=== PATIENT | male | born 1990 | race Caucasian/White ===

== ENCOUNTER 2018-09-30 13:53 | Observation (INO) | payer OTHER ==
[~2018-09-30] VITALS: Ht 167.6 cm; Wt 65.8 kg
[~2018-09-30 13:53] MED LIST: ALBU90OI INH; AZIT250 PO; CYCL10 PO; Crutch1 EACH MISC; Cyclobenzaprine5 MG PO; DOXY100 PO; IBUP600 PO; Naprosyn500 MG PO; Norco 5-325 Ta1 EACH PO
[2018-09-30 14:49] LABS: U Amphetamine Screen Not Detected; U Barbituate Screen Not Detected; U Benzodiazapine Screen Not Detected; U Buprenorphine Screen Not Detected; U Cannabinoids Screen DETECTED; U Cocaine Screen Not Detected; U Methadone Screen Not Detected; U Methamphetamine Screen Not Detected; U Opiates Screen Not Detected; U Oxycodone Screen Not Detected; U Phencyclidine Screen Not Detected; U Propoxyphene Screen Not Detected
[2018-09-30 15:06] LABS: Alanine Aminotransfer (ALT/SGP 17 U/L (12-78); Albumin, Blood 4.3 g/dL (3.4-5.0); Albumin/Globulin Ratio 1.3 (0.8-1.8); Alk Phos 52 U/L (50-136); Anion Gap 8 mmol/L (6-16); Aspartate Aminotrans (AST/SGOT 8 U/L (12-37); Bilirubin, Total 0.5 mg/dL (0.1-1.0); Blood Urea Nitrogen 16 mg/dL (8-24); Bun/Creatinine Ratio 19.9 (12.0-20.0); CO2, Blood 28 mmol/L (21-32); Calcium, Blood 8.7 mg/dL (8.5-10.1); Chloride, Blood 108 mmol/L (98-108); Ethanol (Alcohol), Blood, Med <3 mg/dL; Globulin, Blood 3.3 g/dL (2.2-4.0); Glomerular Filtration Rate >60 (60-); Glucose, Blood 111 mg/dL (70-99); Potassium, Blood 3.4 mmol/L (3.5-5.5); Salicylate <1.7 mg/dL (2.8-20.0); Sodium, Blood 144 mmol/L (136-145); Total Protein, Blood 7.6 g/dL (6.4-8.2)
[2018-09-30 15:14] LABS: Acetaminophen, Random <2.0 ug/mL (10.0-30.0)
[2018-09-30 15:50] LABS: BASOPHILS ABSOLUTE AUTO 0.03 K/mm3 (0.00-0.23); BASOPHILS PERCENT AUTO 1 % (0-2); EOSINOPHILS ABSOLUTE AUTO 0.06 K/mm3 (0.00-0.68); EOSINOPHILS PERCENT AUTO 1 % (0-6); Hematocrit 46.1 % (37.0-53.0); Hemoglobin 15.4 g/dL (13.5-17.5); IMMATURE GRAN ABSOLUTE AUTO 0.01 K/mm3 (0.00-0.10); IMMATURE GRAN PERCENT AUTO 0 % (0-1); LYMPHOCYTES ABSOLUTE AUTO 1.16 K/mm3 (0.84-5.20); LYMPHOCYTES PERCENT AUTO 25 % (21-46); MONOCYTES ABSOLUTE AUTO 0.31 K/mm3 (0.16-1.47); MONOCYTES PERCENT AUTO 7 % (4-13); Mean Corpuscular HGB 31.1 pg (26.0-34.0); Mean Corpuscular HGB Conc 33.4 g/dL (31.5-36.5); Mean Corpuscular Volume 93 fL (80-100); NEUTROPHILS ABSOLUTE AUTO 3.03 K/mm3 (1.96-9.15); NEUTROPHILS PERCENT AUTO 66 % (41-73); Platelet Count 270 K/mm3 (150-400); RDW Standard Deviation 41.4 fL (35.1-46.3); Red Blood Cell Count 4.95 M/mm3 (4.30-5.90)
== END 2018-10-02 14:00 | disposition home or self-care (01) ==
LOC: ER 13:53 → EOR 13:54
PROVIDERS: Physician Assistant
DX: R45.851 Suicidal ideations (principal); F23 Brief psychotic disorder; F32.89 Other specified depressive episodes; F28 Other psychotic disorder not due to a substance or known physiological condition; Z87.891 Personal history of nicotine dependence; Z79.899 Other long term (current) drug therapy
CPT/HCPCS: 36415; 80053; 85025; 99285; G0378; G0480; Q3014

== ENCOUNTER 2019-09-01 16:43 | Emergency (ER) | payer OTHER ==
[~2019-09-01] VITALS: Ht 165.1 cm; Wt 72.6 kg
== END 2019-09-01 19:10 | disposition home or self-care (01) ==
LOC: ER 16:43
DX: L23.7 Allergic contact dermatitis due to plants, except food (principal); Z87.891 Personal history of nicotine dependence
CPT/HCPCS: 96372; 99282-25; J3301

== ENCOUNTER 2025-01-12 15:41 | Emergency (ER) | payer OTHER ==
[~2025-01-12] VITALS: Ht 165.1 cm; Wt 81.7 kg
[2025-01-12] MEDS ORDERED: NS 1,000 ML IV SCH (15:50)
[2025-01-12] MEDS ORDERED: Acetaminophen 500 MG Tab PO ONE (15:50)
[2025-01-12] MEDS ORDERED: Prochlorperazine Edisylate 10 mg Vial IV ONE (15:50)
[2025-01-12] MEDS ORDERED: DiphenhydrAMINE HCl 50 MG/ML 1ML Vial IV ONE (15:50)
[2025-01-12] MEDS ORDERED: IBUP600 PO (18:31)
[2025-01-12] MEDS ORDERED: ONDA4 PO (18:31)
[2025-01-12] MEDS ORDERED: ACET500 PO (18:31)
[2025-01-12 19:13] VITALS: BP 123/82
== END 2025-01-12 19:42 | disposition home or self-care (01) ==
LOC: ER 15:41
DX: S06.0X0A Concussion without loss of consciousness, initial encounter (principal); J45.909 Unspecified asthma, uncomplicated; Z87.891 Personal history of nicotine dependence; X58.XXXA Exposure to other specified factors, initial encounter
CPT/HCPCS: 70450; 99284-25